=== PATIENT | male | born 1960 | race Caucasian/White ===

== ENCOUNTER 2016-05-01 13:03 | Day surgery (SDC) | payer OTHER ==
[~2016-05-01] VITALS: Ht 182.9 cm; Wt 109.8 kg
[2016-05-01 15:33] VITALS: Ht 182.9 cm; Wt 109.8 kg
[2016-05-01] MEDS ORDERED: ASPI-664 PO (15:39)
[2016-05-01] MEDS ORDERED: HYD25 PO (15:39)
[2016-05-01 15:51] VITALS: BP 134/79; PULSE 78; RESP 18
[2016-05-01] MEDS ORDERED: PROPOFOL 40 ML ONE (16:17)
[2016-05-01] MEDS ORDERED: LIDOCAINE 2% (SDV) 5 ML INJ ONE (16:18)
[2016-05-01 16:44] VITALS: BP 122/79; PULSE 75; RESP 16
[2016-05-01 17:08] VITALS: BP 126/84; PULSE 72
--- NOTE | 2016-05-01 21:59 | GILP ---
DATE OF PROCEDURE: 05/01/2016 DATE: 05/01/2016. NAME OF PROCEDURE: Colonoscopy with polyp ablation, colonoscopy with biopsies. SURGEON: Saud Bartlett MD. HISTORY AND INDICATIONS: The patient is here for colorectal cancer screening. PREMEDICATION: Monitored anesthesia care by anesthesiologist. INSTRUMENT USED: Olympus colonoscope. PREPARATION: Adequate. TECHNIQUE: After informed consent, with the patient/relatives understanding the procedure, its indic ations potential risks and complications, including but not limited to: allergic reaction, bleeding, perforation, infection, missed lesions and after all pertinent questions were answered to the patie nt's satisfaction, the patient/relatives signed the witnessed informed consent. Following this, premedication was administered slowly IV push by under careful cardiovascular and re spiratory monitoring with pulse oximetry, automatic blood pressure and shore man. Once the sedativ e effect was achieved, the patient was placed in the left lateral decubitus position, digital rectal examination was performed. The colonoscope was then introduced and advanced under visual control th roughout all segments of the colon including: the rectum, sigmoid, descending colon, splenic flexure , transverse colon, hepatic flexure, ascending colon and finally reaching the cecum which was clearl y identified by transillumination, finger indentation and the ileocecal valve. Careful examination o f the mucosa of the lower gastrointestinal tract both on insertion as well as withdrawal of the inst rument disclosed the following findings: Rectal Examination: No evidence of perirectal disease, no masses. Colonic Mucosa: The colonic mucosa is remarkable for the presence of a few aphthous ulcerations in t he sigmoid colon. Biopsies were obtained. A 4 mm polyp was noted in the descending colon and was completely ablated with biopsy forceps. The remainder of the colonic mucosa shows no abnormalities. The ileocecal valve was clearly identified and appears unremarkable. Terminal ileum appears unremarkable as well. The instrument was withdraw n reexamining the mucosa in detail. No additional abnormalities are noted with the exception of lar ge internal hemorrhoids. The instrument was then withdrawn, the patient tolerated the procedure well and was transferred out of the [facility]oscopy [facility] awake and in good condition to continue recovery under observation. IMPRESSION: 1. A few aphthous ulcerations in the sigmoid colon of questionable clinical significance. Biopsies obtained. A 4 mm polyp in the descending colon ablated. 2. Large internal hemorrhoids. RECOMMENDATIONS: The patient will be continued on present regimen. Pathology will be reviewed as s oon as available. Further recommendations will depend on the patient's clinical course as well as r eview of biopsies. Surveillance colonoscopy in 5 years is recommended. Annual Hemoccult stool test ing is also recommended. Dictated By: SAUD BARTLETT MS/TYLOR Conf#: [id number] DID#: [id number]
== END 2016-05-01 18:25 | disposition home or self-care (01) ==
LOC: GIL 13:03
PROVIDERS: ATTEND Internal Medicine Gastroenterology
DX: Z12.11 Encounter for screening for malignant neoplasm of colon (principal); D12.4 Benign neoplasm of descending colon; K63.3 Ulcer of intestine; K64.8 Other hemorrhoids; I10 Essential (primary) hypertension; E66.9 Obesity, unspecified; Z68.32 Body mass index [BMI] 32.0-32.9, adult; Z79.82 Long term (current) use of aspirin
CPT/HCPCS: 45380; 88305; Z7610